=== PATIENT | male | born 1985 | race Caucasian/White ===

== ENCOUNTER 2020-04-06 08:16 | Outpatient (CLI) | payer MEDICAID | END 2020-04-06 23:59 | disposition home or self-care (01) | LOC: RAD 08:16 | PROVIDERS: ATTEND General Practice | DX: G40.309 Generalized idiopathic epilepsy and epileptic syndromes, not intractable, without status epilepticus (principal); F20.9 Schizophrenia, unspecified; F43.10 Post-traumatic stress disorder, unspecified; F31.81 Bipolar II disorder | CPT/HCPCS: 95819 ==